=== PATIENT | male | born 1990 | race Caucasian/White ===

== ENCOUNTER 2022-05-20 23:35 | Emergency (ER) | payer BC ==
[2022-05-21 00:20] LABS: CHLORIDE,CL 103 mEq/L (98-106); SODIUM,NA 141 mEq/L (136-145)
[2022-05-21 00:21] LABS: ESTIMATED GFR 116 mL/min (>=60)
[2022-05-21 00:27] LABS: AMPHETAMINES,URINE NEGATIVE (NEGATIVE); BARBITURATES,URINE NEGATIVE (NEGATIVE); BENZODIAZEPINE,URINE NEGATIVE (NEGATIVE); MDMA (ECSTASY), URINE NEGATIVE (NEGATIVE); METHADONE,URINE NEGATIVE (NEGATIVE); METHAMPHETAMINES,URINE NEGATIVE (NEGATIVE); OPIATES,URINE NEGATIVE (NEGATIVE); OXYCODONE,URINE NEGATIVE (NEGATIVE); PHENCYCLIDINE,URINE NEGATIVE (NEGATIVE); TCA,URINE NEGATIVE (NEGATIVE)
[2022-05-21] MEDS: Sodium Chloride 0.9% 1,000 ML IV ONE (01:22)
[2022-05-21] MEDS: Sodium Chloride 0.9% 1,000 ML IV SCH (02:19)
== END 2022-05-21 07:30 | disposition home or self-care (01) ==
LOC: CC.ED 23:35
DX: S06.0X9A Concussion with loss of consciousness of unspecified duration, initial encounter (principal); F10.920 Alcohol use, unspecified with intoxication, uncomplicated; Y90.8 Blood alcohol level of 240 mg/100 ml or more; W18.09XA Striking against other object with subsequent fall, initial encounter
CPT/HCPCS: 36415; 70450; 71045; 72125; 72128; 72131; 72170; 80053; 80305-QW; 80307; 81001; 82550; 83605; 85025; 86140; 93005; 93010; 96360; 96361; 99284; 99284-25; C1758; J7030